=== PATIENT | female | born 1975 | race American Indian/Alaskan Native ===

== ENCOUNTER 2018-01-20 07:32 | Emergency (ER) | payer BC ==
[2018-01-20 07:37] VITALS: BP 118/75; PULSE 69; TEMP 97; O2SAT 100; BMI 23.7
[2018-01-20] MEDS ORDERED: cefTRIAXone (Rocephin) 250 mg Inj IM STA (08:52)
--- NOTE | 2018-01-20 08:56 | ED PDOC ---
HPI: Female Pain Time Seen by Provider: 01/20/18 08:00 Chief Complaint (Nursing): Female Genitourinary Chief Complaint (Provider): Female Genitourinary History Per: Patient History/Exam Limitations: no limitations Onset/Duration Of Symptoms: Days (x7) Current Symptoms Are (Timing): Still Present Quality Of Discomfort: Pressure Additional Complaint(s): 42 year old female with no significant past medical history presents to the ED with clear vaginal discharge onset one week. She also reports lower abdominal pressure due to fibroids. Patient states last sexual activity was a year ago. She denies vaginal bleeding, dysuria, hematuria or any other medical complaints. PMD: none provided Abnormal Vaginal Bleeding: No Past Medical History Reviewed: Historical Data, Nursing Documentation, Vital Signs Vital Signs: Last Vital Signs Temp 97 F L 01/20/18 07:36 Pulse 69 01/20/18 07:36 Resp BP 118/75 01/20/18 07:36 Pulse Ox 100 01/20/18 07:36 - Medical History PMH: No Chronic Diseases - Surgical History Surgical History: No Surg Hx - Family History Family History: States: Unknown Family Hx - Home Medications Home Medications: Ambulatory Orders Medication Instructions Recorded Gemifloxacin Mesylate [Factive] 320 mg PO DAILY #1 tablet 01/20/18 - Allergies Allergies/Adverse Reactions: Allergies Allergy/AdvReac Type Severity Reaction Status Date / Time No Known Allergies Allergy Verified 01/20/18 07:57 Review of Systems ROS Statement: Except As Marked, All Systems Reviewed And Found Negative Gastrointestinal: Positive for: Other (lower abdominal pressure) Genitourinary Female: Positive for: Vaginal Discharge (clear), Other. Negative for: Dysuria, Hematuria, Vaginal Bleeding Physical Exam - Reviewed Nursing Documentation Reviewed: Yes Vital Signs Reviewed: Yes - Physical Exam Appears: Positive for: Non-toxic, No Acute Distress Head Exam: Positive for: ATRAUMATIC, NORMOCEPHALIC Skin: Positive for: Normal Color, Warm, Dry Eye Exam: Positive for: EOMI, Normal appearance, PERRL Neck: Positive for: Normal, Painless ROM Cardiovascular/Chest: Positive for: Regular Rate, Rhythm Respiratory: Positive for: Normal Breath Sounds. Negative for: Respiratory Distress Pelvic Exam: Positive for: External Exam Normal, Discharge (thick clear d/c on vaginal jensen), Mass (suprapubic mass consistent with fibroids), Tender W/ Cervical Motion. Negative for: No Cerv. Motion Tender, Blood, Lesions Extremity: Positive for: Normal ROM (upper and lower extremities) Neurologic/Psych: Positive for: Alert, Oriented (x3) - ECG O2 Sat by Pulse Oximetry: 100 (RA) Pulse Ox Interpretation: Normal Medical Decision Making Medical Decision Making: Time: Initial Impression: Physiologic discharge Differential diagnosis include but are not limited to cervicitis Initial Plan: --Urine Preg --Urine dip --Chlamydia/GC RNA, TMA --Rocephin 250 mg IM --Zithromax 500 mg PO --Genital Culture Scribe Attestation: Documented by Dianna Nova, acting as a scribe for Jagruti Guzmán MD Provider Scribe Attestation: All medical record entries made by the Scribe were at my direction and personally dictated by me. I have reviewed the chart and agree that the record accurately reflects my personal performance of the history, physical exam, medical decision making, and the department course for this patient. I have also personally directed, reviewed, and agree with the discharge instructions and disposition. Disposition - Clinical Impression Clinical Impression: Cervicitis - Disposition Disposition: Routine/Home Disposition Time: 09:40 Condition: STABLE Additional Instructions: FOLLOW-UP WITH OB-CONSTRUCTION ANALYST WITHIN 2 DAYS FOR REEVALUATION. Prescriptions: Gemifloxacin Mesylate [Factive] 320 mg PO DAILY #1 tablet Instructions: Vaginal Discharge in Adults Forms: [employer] (Maori)
== END 2018-01-20 10:07 | disposition home or self-care (01) ==
LOC: H.ER 07:32
DX: N72 Inflammatory disease of cervix uteri (principal); D25.9 Leiomyoma of uterus, unspecified; N89.8 Other specified noninflammatory disorders of vagina

== ENCOUNTER 2018-05-20 09:09 | Emergency (ER) | payer BC ==
[2018-05-20 09:19] VITALS: BP 108/72; PULSE 67; RESP 18; TEMP 97.7; O2SAT 100; BMI 23.1
--- NOTE | 2018-05-20 10:29 | ED PDOC ---
HPI: Female Pain Chief Complaint (Provider): Vaginal itching History Per: Patient Additional Complaint(s): 42 yo female, no PMH, presents to ED for evaluation of vaginal itching and discharge x 1 week. Pt denies any recent history of unprotected sex, no concern for STDs. <Emmy Laboy - Last Filed: 05/20/18 11:01> <Inge Clinton - Last Filed: 05/20/18 19:19> Time Seen by Provider: 05/20/18 09:58 Chief Complaint (Nursing): Female Genitourinary Supervising Attending Note - Supervising Attending Note The Documented history was done by the: Physician Change Agent The documented physical exam was done by the: Physician Change Agent The documented procedures were done by the: Physician Change Agent - Attestation: I have personally seen and examined this patient.: No I have fully participated in the care of the patient.: No I have reviewed all pertinent clinical information, including history, physical exam and plan: Yes <Inge Clinton - Last Filed: 05/20/18 19:19> Past Medical History Reviewed: Nursing Documentation, Vital Signs Vital Signs: Last Vital Signs Temp 97.7 F 05/20/18 09:17 Pulse 67 05/20/18 09:17 Resp 18 05/20/18 09:17 BP 108/72 05/20/18 09:17 Pulse Ox 100 05/20/18 09:17 - Medical History PMH: No Chronic Diseases - Surgical History Surgical History: No Surg Hx - Family History Family History: States: Unknown Family Hx - Living Arrangements Living Arrangements: With Family - Social History Current smoker - smoking cessation education provided: No Alcohol: Social Drugs: Denies <Emmy Laboy - Last Filed: 05/20/18 11:01> Vital Signs: Last Vital Signs Temp 97.7 F 05/20/18 09:17 Pulse 67 05/20/18 09:17 Resp 18 05/20/18 09:17 BP 108/72 05/20/18 09:17 Pulse Ox 100 05/20/18 11:04 <Inge Clinton - Last Filed: 05/20/18 19:19> - Home Medications Home Medications: Ambulatory Orders Medication Instructions Recorded RX: Gemifloxacin Mesylate [Factive] 320 mg PO DAILY #1 tablet 01/20/18 Metronidazole [Metrogel-Vaginal] 1 ea VG HS #5 gel 05/20/18 - Allergies Allergies/Adverse Reactions: Allergies Allergy/AdvReac Type Severity Reaction Status Date / Time No Known Allergies Allergy Verified 01/20/18 07:57 Review of Systems ROS Statement: Except As Marked, All Systems Reviewed And Found Negative Genitourinary Female: Positive for: Vaginal Discharge <Emmy Laboy - Last Filed: 05/20/18 11:01> Physical Exam - Reviewed Nursing Documentation Reviewed: Yes Vital Signs Reviewed: Yes - Physical Exam Appears: Positive for: Well, Non-toxic, No Acute Distress Head Exam: Positive for: ATRAUMATIC, NORMAL INSPECTION, NORMOCEPHALIC Skin: Positive for: Normal Color, Warm, DRY Eye Exam: Positive for: EOMI, Normal appearance, PERRL ENT: Positive for: Normal ENT Inspection Neck: Positive for: Normal, Painless ROM Cardiovascular/Chest: Positive for: Regular Rate, Rhythm Respiratory: Positive for: CNT, Normal Breath Sounds Gastrointestinal/Abdominal: Positive for: Normal Exam, Soft Pelvic Exam: Positive for: External Exam Normal, Speculum Exam Normal, Other (thin white vaginal discharge) Back: Positive for: Normal Inspection Extremity: Positive for: Normal ROM Neurologic/Psych: Positive for: Alert, Oriented <Emmy Laboy - Last Filed: 05/20/18 11:01> - ECG O2 Sat by Pulse Oximetry: 100 <Emmy Laboy Last Filed: 05/20/18 11:01> Medical Decision Making Medical Decision Making: Pt educated on physical exam findings and advised Metrogel x 5 nights Pt declined STD testing when offered. Advised OB follow up <Emmy Laboy - Last Filed: 05/20/18 11:01> Disposition - Patient ED Disposition Is Patient to be Admitted: No - Disposition Disposition: Routine/Home Disposition Time: 11:20 <Emmy Laboy Last Filed: 05/20/18 11:01> <Inge Clinton - Last Filed: 05/20/18 19:19> - Clinical Impression Clinical Impression: Vaginitis - Disposition Condition: STABLE Prescriptions: Metronidazole [Metrogel-Vaginal] 1 ea VG HS #5 gel Instructions: Bacterial Vaginosis Forms: [facility] (Irish)
== END 2018-05-20 11:15 | disposition home or self-care (01) ==
LOC: H.ER 09:09
DX: N76.0 Acute vaginitis (principal)